=== PATIENT | female | born 1980 | race Native Hawaiian/Other Pacific Islander ===

== ENCOUNTER 2023-12-31 18:19 | Outpatient (CLI) | payer OTHER, SELFPAY ==
[2024-01-03 13:47] LABS: HPV Source Cervix; HPV, High Risk by TMA Not Detected
== END 2023-12-31 18:20 | disposition home or self-care (01) ==
PROVIDERS: PCP Surgery; Visit Provider Registered Nurse
DX: Z12.4 Encounter for screening for malignant neoplasm of cervix (principal); Z11.51 Encounter for screening for human papillomavirus (HPV)
CPT/HCPCS: 87624; 87625; 88141; 88142

== ENCOUNTER 2024-02-10 08:55 | Outpatient (CLI) | payer OTHER, SELFPAY ==
--- NOTE | 2024-02-10 09:15 | CRLHL7_ITS ---
For Patients: As a result of the Cures Act, medical imaging exams and procedure reports are released immediately into your electronic medical record. You may view this report before your referring provider. If you have questions, please contact your health care provider. BILATERAL DIGITAL SCREENING MAMMOGRAM WITH COMPUTER-AIDED DETECTION AND TOMOSYNTHESIS CLINICAL HISTORY: Routine screening exam. COMPARISON: None. TECHNIQUE: Digital mammogram in CC and MLO projections including computer-aided detection (CAD). Tomosynthesis was used in this interpretation. BREAST COMPOSITION: The breasts are heterogeneously dense, which may obscure small masses. FINDINGS: RIGHT Breast: Focal nodular density within the lateral RIGHT breast, 5 cm from the nipple, probable lymph node. LEFT Breast: No suspicious findings. IMPRESSION: RIGHT breast asymmetry/mass. RECOMMENDATIONS: Additional mammographic views of the RIGHT breast including 3D spot compression CC/MLO. RIGHT breast ultrasound may also be required. The [facility] will contact the patient. A lay language report of this examination will be provided to the patient. BI-RADS Category 0: Incomplete: Need Additional Imaging Evaluation Dictated by Thad Dowell MD @ 02/10/2024 9:54:24 AM /sp SP/Dictated by: Thad Dowell MD @ 02/10/2024 9:55:00 AM (Electronically Signed)
== END 2024-02-10 08:56 | disposition home or self-care (01) ==
LOC: MAMMO 08:56
PROVIDERS: PCP Surgery; Visit Provider Registered Nurse
DX: Z12.31 Encounter for screening mammogram for malignant neoplasm of breast (principal); R92.333 Mammographic heterogeneous density, bilateral breasts; N63.10 Unspecified lump in the right breast, unspecified quadrant
CPT/HCPCS: 77063; 77067

== ENCOUNTER 2024-02-14 09:16 | Outpatient (CLI) | payer OTHER, SELFPAY ==
--- OUTSIDE RECORDS SUMMARY | 2024-02-13 16:53 | XMS_ITS | Clinical Summary ---
Author Organization [facility] Address [place], [place] [address] Care Team Providers Care Spanish Moss Picker Name Role Phone Satish Modi MD Unavailable Unavailable Pcp, No Primary Care Provider Unavailabl e Allergies No known active allergies Medications vit 28/iron fum/folic (MULTIVITAMIN FOLIC ACID 1 MG)Indications:P regnancy as incidental finding Take 1 tablet by mouth once daily. 90 tablet 3 1 Active lancetsIndicatio ns:Gestational diabetes mellitus (GDM) in third trimester, gestational diabetes method of control unspecified Dispense item covered by pt ins. O99.810 Gestational DM - Test 4 times/day. 200 Each 3 1 Active lancetsIndicatio ns:Diet controlled gestational diabetes mellitus (GDM) in third trimester As directed. Test 4 times per day. 100 Each 1 1 Active cholecalciferol (Vitamin D) 1,000 unit capsule Take 1 Capsule (1,000 units) by mouth once daily. 0 1 Active FLUoxetine (PROZAC) 10 mg capsuleIndicatio ns:Depression with anxiety Take 1 Capsule (10 mg) by mouth every morning. 90 Capsule 3 1 Active hydrOXYzine HCL (ATARAX) 25 mg tabletIndication s:Panic attack Take 1 Tablet (25 mg) by mouth every 6 hours if needed. 30 tablet. 1 Active dextromethorphan -guaFENesin (ROBITUSSIN DM) (10-100 mg in 5 mL)Indications:C ough Take 10 mL by mouth every 6 hours if needed (cough). 120 mL 2 Active Active Problems Problem Noted Date Diagnosed Date 03/22/2020 Overview (09/09/2020): Component Latest Ref Rng & Units 09/05/2020 Vaginal/Rectal OB Strep B PCR Negative Estimated Date of Delivery: 10/08/20 Patient's last menstrual period was 01/02/2020 (exact date). Last Tdap- 08/26/2020 Last Flu vaccine- 01/12/2020 Glucose (GTT) result- Component Latest Ref Rng & Units 06/30/2020 CHLAMYDIA PROBE Negative N GONORRHOEAE PROBE Negative HEMOGLOBIN 12.0 - 16.0 g/dL 9.5 (L) MCV 80 - 100 fL 83 GLUCOSE,GESTATIONAL 65 - 139 mg/dL 172 (H) FERRITIN 15.0 - 205.0 ng/mL 270.8 (H) Component Latest Ref Rng & Units 07/28/2020 GLUC HUGH,FAST (GEST) 65 - 95 mg/dL 79 GLUC HUGH,1HR (GEST) 65 - 180 mg/dL 192 (H) 20 week US: Level 2 US completed at [facility] No Known Allergies OB History Para Term AB Living 4 2 1 0 1 1 SAB TAB Ectopic Multiple Live Births 1 0 0 0 1 # Outcome Date GA Lbr Addison/2nd Weight Sex Delivery Anes PTL Lv 4 Current 3 SAB 12/05/17 2 Para 04/26/07 F Vag N 1 Term 06/16/01 M Vag SHERIF Name: Radhames Joe lab flowsheet for OB labs- Component Latest Ref Rng & Units 03/02/2020 03/02/2020 03/02/2020 11:34 AM 11:34 AM 11:34 AM ANTIBODY SCREEN Negative Negative SPECIMEN EXPIRATION DATE/TIME 03/05/20 23:59 HEMOGLOBIN 12.0 - 16.0 g/dL 11.5 (L) MCV 80 - 100 fL 80 PLATELET COUNT 140 - 440 thou/cu mm 314 MPV 6.5 - 11.0 fL 10.5 RUBELLA IGG ANTIBODY Positive 2.75 HEMOGLOBIN A1C SCREENING <=6.4 % 5.5 ABORH O Rh Positive HBSAG Nonreactive Nonreactive HEPATITIS C ANTIBODY Non-Reactive Non-Reactive HIV-1/HIV-2 ANTIBODY Non-Reactive Non-Reactive TREPONEMA PALLIDUM Negative Negative Past Medical History: . Date Ganglion cyst of wrist Left Ganglion cyst of wrist 08/14/2011 Latent tuberculosis Past Surgical History: . Laterality Date GANGLION CYST EXCISION Left 2011 No data on file. Problems (from 03/02/20 to present) No problems associated with this episode. Lis Freeman RN.....03/22/2020 3:07 PM Depression with anxiety 04/06/2016 Ganglion cyst of wrist 08/14/2011 Latent tuberculosis Encounters Date Type Department Care Team Description 02/10/2024 Orders Only [facility] Scanner 1 scan: (1-Ord) [place], MM SCREENING MAMMO BI, 02/10/2024 from Last 3 Months Immunizations Name Administration Dates Next Due COVID-19 vaccine ([employer] 30mcg/0.3mL) PF, MDV 01/27/2021,11/25/2020 DTaP 03/17/1983, 3,01/13/1982,1981 Hepatitis B, Unspecified 10/01/2000 Influenza, IIV3 (Age >=3 years) 02/16/19 14,12/19/2011,01/27/2008,2006 Influenza, IIV4 11/25/2020,01/12/2020 MMR 08/04/2009,10/01/2000 Polio Virus, Unspecified 05/30/1984,09/1983,05/22/1983,1982,03/16/1982,01/13/1982,1981 Td (Age >=7 Years) 09/01/2001 Tdap 08/26/2020, 4,08/24/2011,2009 Varicella Vaccine 08/04/2009 Family History Medical History Relation Name Comments Asthma Brother Heart Disease Mother murmer Asthma Sister Relation Name Status Comments Brother Mother Sister Social History Tobacco Use Types Packs/Day Years Used Date Smoking Tobacco: Never Smokeless Tobacco: Never Tobacco Cessation:Counseling Given: Yes Alcohol Use Standard Drinks/Week Comments No 0 (1 standard drink = 0.6 oz pur e alcohol) PHQ-2 Answer Date Recorded PHQ-2 TOTAL SCORE 1 08/26/2020 Social Connections Answer Date Recorded Frequency of Communication with Friends and Fami ly Not on file 02/11/2021 Financial Resource Strain Answer Date R ecorded Difficulty of Paying Living Expenses Not on file 02/11/2021 Difficulty of Paying Living Expenses Not on file 02/11/2021 Comments No Sex and Gender Information Value Date Recorded Sex Assigned at Not on file Legal Sex Female 5:45 AM CHILD WELFARE CONSULTANT Gender Identity Not on file Sexual Orientation Not on file Obstetrics History Para Term AB IAB SAB Ectopic Multiple Livin g Live Births 4 2 1 1 1 2 2 Date Outcome GA Total Labor Labor/2nd/3rd Weight Sex Type Anes PTL Sherif A1 A5 Name Clin 06/16 Term M Vag Living Delfinoha n 04/25 Para F Vag N Complications:None 12/05 SAB Last Filed Vital Signs Vital Sign Reading Time Taken Comments Blood Pressure 121/83 11/25/2020 1:22 PM CDT Pulse 62 11/25/2020 1:22 PM CDT Temperature 36.5 C (97.7 F) 06/30/2020 8:25 AM CDT Respiratory Rate 16 06/24/2020 8:35 AM CDT Oxygen Saturation 95% 11/25/2020 1:22 PM CDT Inhaled Oxygen Concentration - - Weight 68.6 kg (151 lb 3.2 oz) 11/25/2020 1:22 P M CDT Height 158.6 cm (5' 2.44) 11/25/2020 1:22 PM CD T Body Mass Index 27.27 11/25/2020 1:22 PM CDT Plan of Treatment Health Maintenance Due Date Last Done Comments Depression screening for age 12+ 08/26/2021 08/26/2020, 03/21/2020, 03/02/2020, Additional history exists BMI (ht and wt on same day) for age 18+ 11/25/2021 11/25/2020, 06/20/2020, 03/02/2020, Additional history exists Pap test for age 21-65 01/11/2023 , 08/01/2017, 08/01/2017, Additional history exists COVID-19 vaccine series ( season) 2023 01/27/2021, 11/25/2020 Influenza for age 9-49 10/13/2023 , 01/12/2020, 02/16/2013, Additional history exists Tetanus booster 08/26/2030 08/26/2020, 07/2013, 08/24/2011, Additional history exists HIV for age 15-65 Completed 03/02/2020, 09/25/2006 Hepatitis C screening for age 18-79 Completed 03/02/2020 Tdap Completed 08/26/2020, 07/2013, 08/24/2011, Additional history exists Pneumococcal series for age 6-49 Aged Out No longer eligible based on patient's age to complete this topic Procedures Procedure Name Priority Date/Time Associated Diagnosis Comments SCAN-MAMMOGRAPHY REPORT 02/10/2024 12:00 AM CHILD WELFARE CONSULTANT ANTI HIV 1/2 Routine 03/02/2020 11:34 AM CHILD WELFARE CONSULTANT Encounter for supervision of normal first in first trimester ANTI HCV Routine 03/02/2020 11:34 AM CHILD WELFARE CONSULTANT Encounter for supervision of normal first in first trimester TECHNOLOGY INTEGRATION SPECIALIST THIN PREP PAP SCREEN IMAGED Routine 01/12/2020 10:00 AM CHILD WELFARE CONSULTANT Pap smear for cervical cancer screening from Last 3 Months or Most Recently Relevant to Health Maintenance Results * SCAN-MAMMOGRAPHY REPORT (02/10/2024 12:00 AM CHILD WELFARE CONSULTANT) Anatomical Region Laterality Modality Other us Scanner OTHER Final Result * ANTI HCV (03/02/2020 11:34 AM CHILD WELFARE CONSULTANT) HEPATITIS C ANTIBODY Non-React beto Non-React beto 03/02/2020 6:20 PM CHILD WELFARE CONSULTANT [facility] Comment:Antibodies to HCV no t detected; does not exclude the possibility of exposure to HCV. Blood BLOOD SPECIMEN / Unknown Venipuncture / Unknown 03/02/2020 11:34 AM CHILD WELFARE CONSULTANT 03/02/2020 11:37 AM CHILD WELFARE CONSULTANT us Gracia SHEPPARD SEND OUTS Final R esult [facility] [address] [place] [address], [place] * ANTI HIV 1/2 (03/02/2020 11:34 AM CHILD WELFARE CONSULTANT) HIV-1/HIV-2 ANTIBODY Non-Reacti ve Non-Reacti ve 03/02/2020 6:24 PM CHILD WELFARE CONSULTANT [facility] Comment:HIV-1 p24 and HIV-1/ HIV-2 Ab not detected. Blood BLOOD SPECIMEN / Unknown Venipuncture / Unknown 03/02/2020 11:34 AM CHILD WELFARE CONSULTANT 03/02/2020 11:37 AM CHILD WELFARE CONSULTANT us Gracia SHEPPARD SEND OUTS Final R esult [facility] [address] [place] [address], [place] * TECHNOLOGY INTEGRATION SPECIALIST THIN PREP PAP SCREEN IMAGED (01/12/2020 10:00 AM CHILD WELFARE CONSULTANT) Case Report Gynecologic Cytology Report Case: [id number] Authorizing Provider: Bulmaro Barrett MD Collected: 01/12/2020 1000 Ordering Location: [facility] Received: 01/12/[address] [place] [address] First Screen: Maximo Cunningham Specimen: TECHNOLOGY INTEGRATION SPECIALIST ThinPrep Vial Screening, Cervical 01/20/2020 2:09 PM CHILD WELFARE CONSULTANT [facility] INTERPRETATION/ RESULT NEGATIVE FOR INTRAEPITHELIAL LESION OR MALIGNANCY (NIL) (none) 01/20/2020 2:09 PM CHILD WELFARE CONSULTANT [facility] IMEN ADEQUACY Satisfactory for evaluation Endocervical component present 01/20/2020 2:09 PM CHILD WELFARE CONSULTANT [facility] HPV REQUEST HPV if ASCUS 01/20/2020 2:09 PM CHILD WELFARE CONSULTANT [facility] Date of LMP 01/02/2020 01/20/2020 2:09 PM CHILD WELFARE CONSULTANT [facility] Last Pap Date 08/01/17 01/20/2020 2:09 PM CHILD WELFARE CONSULTANT [facility] Last Pap Result NIL 0 2:09 PM CHILD WELFARE CONSULTANT [facility] Abnormal Pap or [place] Bx in last 5 years No 01/20/2020 2:09 PM CHILD WELFARE CONSULTANT [facility] Menstrual Status Regular Periods 01/20/2020 2:09 PM CHILD WELFARE CONSULTANT [facility] [place] Bx Done Today No 01/20/2020 2:09 PM CHILD WELFARE CONSULTANT [facility] Additional Information None given 01/20/2020 2:09 PM CHILD WELFARE CONSULTANT [facility] Comment: Cytology is screened at [facility] - [address], [place] [address] and [facility] - [address], [place] [address] and [facility] - [address] [place] [address] Interpreted at [facility] - [address], [place] [address] Automated Review Successful 01/20/2020 2:09 PM CHILD WELFARE CONSULTANT [facility] Comment:Specimen processed s uccessfully by automated academic coach device, ThinPrep Imaging System, [employer] Note The pap test is a screening technique, not a diagnostic procedure. It is used primarily to screen for squamous cancers and precursor lesions. Published studies have shown that it is subject to both false negative and false positive results. The pap test should not be used as the sole means to diagnose or exclude pre-malignant and malignant lesions. 01/20/2020 2:09 PM CHILD WELFARE CONSULTANT [facility] Other (Cervical) Non-Blood / Unknown 01/12/2020 10:00 AM CHILD WELFARE CONSULTANT 01/12/2020 10:07 AM CHILD WELFARE CONSULTANT us Bulmaro Barrett MD PATHOLOGY/CYTOLOGY Final Result [facility] [address] [place] [address], [place] from Last 3 Months or Most Recently Relevant to Health Maintenance Advance Directives * Full Code (Latest Code Status on File) Date Activated Date Inactivated Comments 08/14/2011 8:24 AM 08/14/2011 12:25 PM * Full Code Date Activated Date Inactivated Comments 08/14/2011 5:25 AM 08/14/2011 8:24 AM Care Teams Spanish Moss Picker Relationship Specialty Start Date End Date Pcp, No . PCP - General 12/07/20 Satish Modi MD Orthopedics Surgery - Orthopedics 07/03/11
--- NOTE | 2024-02-14 09:45 | CRLHL7_ITS ---
For Patients: As a result of the Cures Act, medical imaging exams and procedure reports are released immediately into your electronic medical record. You may view this report before your referring provider. If you have questions, please contact your health care provider. DIGITAL DIAGNOSTIC RIGHT MAMMOGRAM USING TOMOSYNTHESIS AND COMPUTER-AIDED DETECTION RIGHT BREAST ULTRASOUND CLINICAL HISTORY: RIGHT breast mass/asymmetry. COMPARISON: 02/10/2024. TECHNIQUE: Digital RIGHT mammogram in two projections. Tomosynthesis and CAD were used in this interpretation. Real-time ultrasound imaging of RIGHT breast with imaging documentation. BREAST COMPOSITION: There are scattered areas of fibroglandular density. FINDINGS: 3D spot compression CC/MLO RIGHT breast mammogram images submitted. Persistent nodular density RIGHT breast without architectural distortion. No adenopathy or suspicious calcifications. Targeted RIGHT breast ultrasound performed at 9 o`clock 6 cm from the nipple. In this location, there is a benign intramammary lymph node measuring 5 x 4 x 4 millimeters. No suspicious findings. IMPRESSION: Benign intramammary lymph node RIGHT breast 9 o`clock 6 cm from the nipple measuring 5 millimeters. No evidence of malignancy. RECOMMENDATIONS: Routine screening mammography. A lay language report of this examination will be provided to the patient. BI-RADS Category 2: Benign Dictated by Thad Dowell MD @ 02/14/2024 10:19:56 AM jj/Dictated by: Thad Dowell MD @ 02/14/2024 10:19:00 AM (Electronically Signed)
--- NOTE | 2024-02-14 10:15 | CRLHL7_ITS ---
For Patients: As a result of the Cures Act, medical imaging exams and procedure reports are released immediately into your electronic medical record. You may view this report before your referring provider. If you have questions, please contact your health care provider. SEE DIGITAL DIAGNOSTIC RIGHT MAMMOGRAM PERFORMED SAME DAY CRL:[email or web address] schumacher/Dictated by: Thad Dowell MD @ 02/14/2024 10:34:00 AM (Electronically Signed)
== END 2024-02-14 09:17 | disposition home or self-care (01) ==
LOC: MAMMO 09:17
PROVIDERS: PCP Surgery; Visit Provider Registered Nurse
DX: N63.10 Unspecified lump in the right breast, unspecified quadrant (principal); R92.8 Other abnormal and inconclusive findings on diagnostic imaging of breast
CPT/HCPCS: 76642; 77065; G0279